=== PATIENT | female | born 1995 | race Caucasian/White ===

== ENCOUNTER 2024-05-02 02:31 | Emergency (ER) | payer OTHER, SELFPAY ==
[2024-05-02 02:33] VITALS: BP 144/96
[2024-05-02 03:02] VITALS: BMI 22.6
--- NOTE | 2024-05-02 04:34 | ED.SKININJ ---
HPI-Injury
<BONNIE Thibodeaux - Last Filed: 05/02/24 06:49>
General
Chief Complaint: Bite
Source: patient
Exam Limitations: none
Time Seen by Provider: 05/02/24 04:27
Nursing documentation reviewed up to this point in time: agreed with
History of Present Illness-Injury
Is this injury a work related problem?: No
Is pt an associate of [facility]?: No
Initial Injury comments:
Patient is a 28yo female who presents w/ bite to L thumb. Was bit by friend's Becky bull mix of unknown vaccination status. Reports throbbing pain from thumb into wrist. Restricted ROM due to pain. Tdap booster >5yo. Reports nausea du to anxiety but
denies vomiting.
Past History
<BONNIE Thibodeaux - Last Filed: 05/02/24 06:49>
Past History
ED Past Medical History: Psychiatric
ED Past Surgical History: None
Social History
Tobacco: Non-smoker
Alcohol: None
Drug: Marijuana
Personal: Single
Living: with family
Review of Systems
<BONNIE Thibodeaux - Last Filed: 05/02/24 06:49>
Review of Systems
Constitutional: Denies fever, fatigue or chills
Respiratory: Denies cough or trouble breathing
Cardiac: Denies chest pain or palpitations
ABD/GI: Reports nausea; Denies abdominal pain, vomiting, diarrhea or constipated
: Denies dysuria
Musculoskeletal: Reports joint pain and joint swelling
Neurological: Denies dizzy, headache, weakness or numbness
Skin Exam
<BONNIE Thibodeaux - Last Filed: 05/02/24 06:49>
Bite
Left Dorsal Thumb:
Type: animal (dog)
Laceration length in cm: 2
Surrounding area around bite has: area of erythema/swelling and oozing and bleeding
Distal skin color and temperature: normal-warm & good color
Normal distal neurovascular exam: Yes
Phy Exam
<Grace Stewart [facility] - Last Filed: 05/02/24 06:49>
General Physical Exam
General Presentation: moderate distress
General age: appears stated age
General Skin: warm and dry
General Habitus: normal
General Mental: anxious
Cardiovascular Exam
Cardiovascular Exam: regular rate/rhythm, no edema, no gallop and no murmur
Pulmonary Exam
Pulmonary Exam: lungs clear, no respiratory distress, no rales, chest non tender, no crackles, no rhonchi and no wheezing
Neurological Exam
Neurological Exam: alert, oriented x3 and speech normal
Course
<Grace Stewart [facility] - Last Filed: 05/02/24 06:49>
Orders/Labs/Results
Orders:
Orders
05/02/24 04:42
Amoxicillin 875 mg/Clav 125 mg [Augmentin 875 mg/125 mg] 1 tablet PO NOW STA
Ibuprofen [Motrin] 600 mg PO NOW STA
Tetanus/Diphth/Acelpertussis [Adacel] 0.5 ml IM .ONCE ONE
05/02/24 04:53
Thumb/Finger(s) 2 View Lt [CR Finger(s)/thumb Min 2 Vw Lt] Urgent
Comment:
Reason For Exam: dog bite dorsal IP joint
05/02/24 06:42
Aluminium Finger Splint Left ONCE
Lorazepam [Ativan] 1 mg PO NOW STA
Vital Signs
Initial and Last Documented VS:
Initial Vital Signs
Temp Pulse Resp BP Pulse Ox
98.1 F 102 22 144/96 97
05/02/24 02:33 05/02/24 02:33 05/02/24 02:33 05/02/24 02:33 05/02/24 02:33
Last Documented Vital Signs
Temp Pulse Resp BP Pulse Ox
98.1 F 89 18 121/63 100
05/02/24 02:33 05/02/24 04:38 05/02/24 04:38 05/02/24 04:38 05/02/24 04:38
<Nayeli Zhang DO - Last Filed: 05/02/24 06:51>
Orders/Labs/Results
Orders:
Orders
05/02/24 04:42
Amoxicillin 875 mg/Clav 125 mg [Augmentin 875 mg/125 mg] 1 tablet PO NOW STA
Ibuprofen [Motrin] 600 mg PO NOW STA
Tetanus/Diphth/Acelpertussis [Adacel] 0.5 ml IM .ONCE ONE
05/02/24 04:53
Thumb/Finger(s) 2 View Lt [CR Finger(s)/thumb Min 2 Vw Lt] Urgent
Comment:
Reason For Exam: dog bite dorsal IP joint
05/02/24 06:42
Aluminium Finger Splint Left ONCE
Lorazepam [Ativan] 1 mg PO NOW STA
Vital Signs
Initial and Last Documented VS:
Initial Vital Signs
Temp Pulse Resp BP Pulse Ox
98.1 F 102 22 144/96 97
05/02/24 02:33 05/02/24 02:33 05/02/24 02:33 05/02/24 02:33 05/02/24 02:33
Last Documented Vital Signs
Temp Pulse Resp BP Pulse Ox
98.1 F 89 18 121/63 100
05/02/24 02:33 05/02/24 04:38 05/02/24 04:38 05/02/24 04:38 05/02/24 04:38
<BONNIE Thibodeaux - Last Filed: 05/02/24 06:49>
*Critical Care Note
Total Time (30-74mins, 75-104mins- exclusive of procedures): Not Applicable
<Nayeli Zhang DO - Last Filed: 05/02/24 06:51>
*Radiology
Radiology exam reviewed: preliminary read by ED provider (Left thumb x-ray shows no evidence of fracture nor foreign body)
*Pulse Oximetry
Patient hypoxic: no
*Critical Care Note
Total Time (30-74mins, 75-104mins- exclusive of procedures): Not Applicable
ED Attending Note
<BONNIE Thibodeaux - Last Filed: 05/02/24 06:49>
-
Portions of this chart may have been created with voice recognition software.� Occasional wrong word or��sound alike� substitutions may have occurred due to the inherent limitations of voice recognition software.
<Nayeli Zhang DO - Last Filed: 05/02/24 06:51>
ED Attending Note
Patient seen and examined by attending physician: Yes
I performed the substantive portion of visit, reviewed & personally made and approve the management plan that is documented in note by myself or TOYA.: Yes
ED Attending Note:
This is a 28-year-old right hand dominant female who presents with complaints of dog bite wound to her left thumb. While at her girlfriend's house, her girlfriend's dog was barking and the patient attempted to pet the dog and was inadvertently
bitten on her left thumb. Injury occurred approximately 2 AM. She is unsure if the dog is up-to-date with vaccinations but has access to find this information out.
Patient states around tetanus was greater than 5 years ago.
She complains of pain at IP joint of left dorsal thumb at area of flap type dog bite wound. She denies numbness nor weakness.
28-year-old female appears her stated age, awake and alert, moderately anxious.
Heart is regular rate and rhythm.
Lungs are clear to auscultation. Respirations are easy nonlabored.
Left hand: Left thumb dorsal aspect overlying the IP joint is a 2.5 cm flap type laceration, full-thickness, no active bleeding. No tendon involvement. There is superficial puncture wound proximal to this laceration. Distal sensation and strength
intact. Rapid capillary refill. Nail and nailbed are intact.
This flap laceration will require loose interrupted suture repair vs steri strips along with thumb splint.
Will plan for digital block, x-ray, copious irrigation prior to repair.
Will update Tdap.
Will initiate a course of Augmentin for infection prevention.
05/02/2024 0644 AM
X-ray shows no evidence of fracture or foreign body.
Patient admits to significant anxiety and has been quite anxious during ED stay, hyperventilating with carpopedal spasm. She admits to similar hyperventilation episodes on numerous occasions in the past.
Flap laceration is well-approximated, we have offered suturing versus Steri-Strips and she elects Steri-Strips.
Wound has been repaired with Steri-Strips. Will plan for Band-Aid and AlumaFoam splint to prevent flexion at IP joint.
Will give an oral dose of Ativan for anxiety, hyperventilation syndrome.
Prescription for 1 week course of Augmentin has been provided.
Recommend follow-up with PCP this week for wound check.
Discharge Plan
Departure
Patient Disposition: Home (Routine Discharge)
Date of Disposition: 05/02/24
Time of Disposition: 06:46
Patient with high blood pressure during this ER visit?: No
Condition: Good
Discharge Problem:
Open wound of left thumb due to dog bite, Acute hyperventilation syndrome
Instructions: Animal Bites (DC), Tdap vaccine, Finger Tip Laceration with Steristrips
Prescriptions:
New
amoxicillin-pot clavulanate 875-125 mg tablet
1 tab PO BID Qty: 14 0RF
No Action
ondansetron 4 MG tablet,disintegrating
4 mg PO TIDPRN PRN (Reason: NAUSEA) Qty: 9 0RF
Referrals:
Fiona Beltre, DO [Family Provider] - Call in 1-3 days for appt
Activity Restrictions/Additional Instructions:
Keep thumb wound clean and dry, keep Steri-Strips clean and dry and A1c to keep thumb splint in place for at least the next 7 days. You can take Tylenol versus ibuprofen as needed for pain.
You have been prescribed Augmentin for infection prevention to be taken twice daily for 1 week.
Touch base with your friend to ensure her dog is up-to-date with rabies vaccine.
Follow-up with your primary care physician this week for wound recheck.
Steri-Strips will peel up and fall off on their own generally in about 10 to 12 days.
Interventions
Interventions:
*Risk Screen - Suicide Last Done: 05/02/24 02:33
*General Assessment Last Done: 05/02/24 02:59
*Neglect/Abuse Screening Last Done: 05/02/24 02:33
ED- Fall Risk Assessment Last Done: 05/02/24 03:02
*ED COVID-19 Vaccine History Last Done: 05/02/24 02:59
ED-Skin Assessment Last Done: 05/02/24 02:59
Discharge Date and Time
Print Language: ICELANDIC
[2024-05-02 04:38] VITALS: BP 121/63
[2024-05-02] MEDS: ADACEL 0.5 ML IM (04:57)
[2024-05-02] MEDS: MOTRIN 600 MG PO (05:43)
[2024-05-02] MEDS: AUGMENTIN 875 MG/125 MG 1 TABLET PO (05:43)
[2024-05-02] MEDS: ATIVAN 1 MG PO (06:44)
[2024-05-02 07:05] VITALS: BP 130/76
== END 2024-05-02 07:38 | disposition home or self-care (01) ==
LOC: EMR 02:31
PROVIDERS: EMERGENCY PHYSICIAN Emergency Medicine; FAMILY PHYSICIAN Family Medicine
DX: S61.052A Open bite of left thumb without damage to nail, initial encounter (principal); W54.0XXA Bitten by dog, initial encounter; F45.8 Other somatoform disorders; Z23 Encounter for immunization
CPT/HCPCS: 29130; 90471; 99284; 73140; 90715